=== PATIENT | female | born 1975 | race African-American/Black ===

== ENCOUNTER 2016-09-23 05:44 | Day surgery (SDC) | payer BC, MEDICARE ==
[~2016-09-23 05:44] MED LIST: BYSTOLIC5 MG; DEPAKOTE ER500 M1 PO; EFFEXOR XR75 M1 PO; HYDROCHLOROTHIA25 M1 PO; HYDROCHLOROTHIA25 MG; NEURONTIN300 M1 PO; NORVASC5 M2 PO; OMEPRAZOLE20 M4 PO; PRISTIQ50 MG; TECFIDERA240 MG PO; VALACYCLOVIR500 M1 PO; ZOFRAN4 M2 PO; ZOFRAN4 MG
[2016-09-24] MEDS ORDERED: PERCOCET 5-3251 EACH PO (08:47)
== END 2016-09-24 09:45 ==
LOC: SHSC 05:44 → ORW 07:17 → PACU 10:36 → OBGF 11:45
PROC: 0HBV0ZZ Excision of Bilateral Breast, Open Approach (ICD-10-PCS; principal; 2016-09-23)
DX: N62 Hypertrophy of breast (principal); I10 Essential (primary) hypertension; M19.90 Unspecified osteoarthritis, unspecified site; F41.9 Anxiety disorder, unspecified; F32.9 Major depressive disorder, single episode, unspecified; M10.9 Gout, unspecified; K21.9 Gastro-esophageal reflux disease without esophagitis; G47.30 Sleep apnea, unspecified; Z88.0 Allergy status to penicillin; Z88.1 Allergy status to other antibiotic agents; Z88.2 Allergy status to sulfonamides; Z98.890 Other specified postprocedural states
CPT/HCPCS: J0690; J1170; J2270; J3010